=== PATIENT | female | born 1960 | race American Indian/Alaskan Native ===

== ENCOUNTER 2022-03-19 08:56 | Day surgery (SDC) | payer MEDICAID, OTHER ==
[~2022-03-19 08:56] MED LIST: Lactated Ringers 1,000 ML IV SCH
[2022-03-19] MEDS ORDERED: Lidocaine 2% 5 ML SDV ONE (10:08)
[2022-03-19] MEDS ORDERED: Propofol 200 MG/20 ML SDV ONE ×3 (10:08→10:46)
[2022-03-19] MEDS ORDERED: fentaNYL 100 MCG/2 ML SDV ONE (10:08)
== END 2022-03-19 11:45 | disposition home or self-care (01) ==
LOC: MW.SDS 08:56
PROVIDERS: ATTEND Surgery
DX: Z12.11 Encounter for screening for malignant neoplasm of colon (principal); D12.6 Benign neoplasm of colon, unspecified; K57.30 Diverticulosis of large intestine without perforation or abscess without bleeding; I10 Essential (primary) hypertension; E78.5 Hyperlipidemia, unspecified; J44.9 Chronic obstructive pulmonary disease, unspecified; F41.9 Anxiety disorder, unspecified; F32.A Depression, unspecified; F17.210 Nicotine dependence, cigarettes, uncomplicated; Z86.010 Personal history of colon polyps; Z79.51 Long term (current) use of inhaled steroids; Z79.899 Other long term (current) drug therapy; Z98.890 Other specified postprocedural states
CPT/HCPCS: J2704; J3010; J7120